=== PATIENT | male | born 1950 | race Caucasian/White ===

== ENCOUNTER 2016-09-01 08:25 | Observation (INO) | payer MEDICARE ==
[~2016-09-01] VITALS: Ht 193 cm; Wt 131.9 kg
[2016-09-01] VITALS (9 sets, daily range): BP systolic 126–154; BP diastolic 69–91; PULSE 93–103; RESP 16–23; O2SAT 92–97
--- NOTE | 2016-09-01 08:35 | ED.REPORT ---
HPI-Chest Pain 40 and Over Date of Service Sep 01, 2016 ED Provider: Ochoa Byrd MD Patient is a 65 year old male w/ a hx of DM II on insulin, hyperlipidemia, JANIE and HTN who presents to the ED with left chest pressure onset 0100. The pain lasts for 30-60 minutes then disappears for another hour. Confirms nausea. The pain does not radiate, no associated numbness and is not present on arrival at the ED. Pt was admitted into the ICU intubated for DKA with pancreatitis at [facility] July 242016. He was also admitted July 08, 08-06 for pneumonia vs pancreatitis causing DKA. Sugar is currently 76. He has no hx of heart disease. He does not have a gallbladder. Regular doctor is Dina Marcelo. Nursing Notes Stated Complaint: CHEST PAIN Chief Complaint: Chest Pain Nursing Notes Reviewed: Yes ([employer], [place] not recon) Allergies: Coded Allergies: Penicillins (Verified Allergy, Severe, Anaphylaxis, 09/01/16) Scheduled Atorvastatin Calcium (Atorvastatin Calcium) 10 Mg Tablet 10 MG PO DAILY Fenofibric Acid (Fenofibric Acid DR) 45 Mg Capsule 45 MG PO DAILY Hydrochlorothiazide (Hydrochlorothiazide) 50 Mg Tablet 50 MG PO DAILY Insulin Glargine (Lantus U100 Solostar Insulin Pen) 100 Unit/1 Ml Insuln.pen 60 UNIT SQ HS Insulin Lispro (HumaLOG U100 Insulin Pen) 100 Unit/1 Ml Insuln.pen 10 UNIT SQ TID Lactobacillus Combo No.11 (Probiotic) 1 Each Cap.sprink 2 EACH PO DAILY Lisinopril (Lisinopril) 5 Mg Tablet 5 MG PO DAILY Metformin ER (Metformin ER) 500 Mg Tablet 500 MG PO DAILY Multivitamin (Multivitamins) 1 Each Capsule 1 EACH PO DAILY Pantoprazole (Pantoprazole DR) 40 Mg Tablet.dr 40 MG PO DAILY Scheduled PRN Hydrocodone-Acetaminophen 5-325 mg (Hydrocodone-Acetaminophen 5-325 mg) 1 Each Tablet 1 TAB PO TID PRN PRN For Pain Prochlorperazine Maleate (Prochlorperazine) 10 Mg Tablet 10 MG PO prn PRN PRN For Nausea General Time Seen by MD: 08:28 Chief Complaint Chest pain Hx Obtained From: Patient, EMS Arrived By: Ambulance Sudden in Onset?: Yes Onset Occurred: 5 - 8 hours ago Symptom Duration: Since onset Location: : Substernal Quality: Pressure Radiation: : Does not radiate Severity: Current: No pain currently Severity: Maximum: Moderate Associated with: Reports: Nausea Pertinent Negative: Pt denies other symptoms Recent Healthcare: Recent doctor visit, Recent hospitalization Past Medical History Past Medical History Notes: Admitted in to the ICU intubated for DKA with pancreatitis at [facility] July 242016 (admitted July 082016 as well) Past Medical History History of acute pancreatitis Type II diabetes-DKA develop in the setting of pancreatitis Elevated triglycerides (515)/hyperlipidemia Hypertension Obstructive sleep apnea on CPAP History of esophageal dysmotility outpatient gastroenterology consult for endoscopy plan Past Surgical History Denies: Dialysis shunt, Tubal ligation Smoking History Never Smoker Social History Alcohol Use: Denies alcohol use Drug Use: Denies drug use Review of Systems Cardiovascular: Reports: Chest pain GI: Reports: Nausea Complete sys rev & neg: except as marked. Physical Exam Initial Vital Signs Vital Signs (First) Date Time Temp Pulse Resp B/P Pulse Ox O2 Delivery O2 Flow Rate FiO2 09/01/16 08:27 36.8 103 23 149/74 93 Room Air Initial VS: Reviewed, Vital signs abnormal (HR 103) Head / Eyes: Atraumatic, Normocephalic, PERRL ENT: Mucous membranes moist, Conjunctiva normal, No scleral icterus Neck: Supple Extremities: Vascular intact, Neuro intact, No swelling, No tenderness Skin: Warm, Dry, No cyanosis Neurologic: Alert, Oriented, Nonfocal Psychiatric: Mood/affect normal, Behavior normal, Normal thought content General/Constitutional: Awake, Alert, Cooperative Appearance / Presentation: Positive: Obese Respiratory / Chest: Atraumatic, Breath sounds NL, Breath sounds = bilat Heart Rate / Rhythm: Positive: Tachycardia Abdomen: Atraumatic, Soft, Non-tender Interpretation & Diagnostics Interpretation & Diagnostics: ANGIOGRAPHY CT IMPRESSION: 1. No pulmonary embolus. 2. Findings suggestive of acute pancreatitis; correlation with laboratory testing recommended. 3. Coronary artery disease. 4. Small pericardial effusion versus mild pericardial thickening. Dictated by: Kaylan Villegas M.D. on 09/01/2016 at 12:55 Approved by: Kalyan Villegas M.D. on 09/01/2016 at 12:58 Lab Results Interpretation Result Diagram: 09/01/16 0830 09/01/16 0830 Test 09/01/16 08:30 09/01/16 09:00 White Blood Count 9.5th/mm3 (3.8-10.1) Red Blood Count 4.55mil/mm3 (4.40-5.80) Hemoglobin 12.1g/dL (13.8-17.2) Hematocrit 37.1% (41.0-50.0) Mean Corpuscular Volume 81.5fL (81-100) Mean Corpuscular Hemoglobin 26.6pg (27.0-35.0) Mean Corpuscular Hemoglobin Concent 32.6% (32.0-37.0) Red Cell Distribution Width 15.8% (12.3-15.4) Platelet Count 296bil/L (150-400) Neutrophils (%) (Auto) 51.7% (40-74) Lymphocytes (%) (Auto) 32.9% (14-46) Monocytes (%) (Auto) 12.6% (4-12) Eosinophils (%) (Auto) 2.1% (0-5) Basophils (%) (Auto) 0.4% (0-3) D-Dimer 0.7mg/L (<0.50) Sodium Level 141mEq/L (134-144) Potassium Level 3.2mEq/L (3.5-5.2) Chloride Level 105mEq/L (97-108) Carbon Dioxide Level 19mmol/L (18-29) Blood Urea Nitrogen 9mg/dL (8-27) Creatinine 0.91mg/dL (0.76-1.27) Estimat Glomerular Filtration Rate 88mL/min (>59) Glucose Level 78mg/dL (60-99) Calcium Level 9.6mg/dL (8.5-10.1) Magnesium Level 1.7mg/dL (1.6-2.6) Total Bilirubin 0.6mg/dL (0.0-1.2) Aspartate Amino Transf (AST/SGOT) 22U/L (0-50) Alanine Aminotransferase (ALT/SGPT) 15U/L (0-44) Alkaline Phosphatase 64U/L (25-160) Total Protein 7.0g/dL (6.4-8.4) Albumin 3.8g/dL (3.4-5.0) Triglycerides Level 120mg/dL (0-149) Cholesterol Level 134mg/dL (100-199) LDL Cholesterol, Calculated 76.000mg/dL (0-99) VLDL Cholesterol 24.000mg/dL HDL Cholesterol 34mg/dL (>39) Cholesterol/HDL Ratio 3.94 (0.0-4.4) Lipase 13U/L (13-60) Hold Rodarte Top Tube Received (Received) Lab Results Interpretation: CBC normal and CMP normal except for mild hypokalemia Lipase normal Troponin #1 negative ECG Interpretation Time: 11:30 Interpreted by: ED physician Normal ECG Interpretation: No acute ischemic changes Rhythm / Conduction: Tachycardia (103) X-Ray Chest Interpretation Chest Xray Interpretation: IMPRESSION: No acute cardiopulmonary disease. Dictated by: Frankie Gasca RRAmy Interpreted: Rosario Ordaz MD on 09/01/2016 at 9:25 Transcribed by: TERA on 09/01/2016 at 9:25 View: Portable Interpretation / Wet Read by: Interpret - Radiologist Re-Eval/Medical Decision Med Decision/Clinical Course This is a 65-year-old male who presents from the cardiovascular laboratory scheduled to undergo a stress test today complaining of some off and on chest discomfort since last night. This is a patient without prior history of heart disease, but he does have multiple risk factors including obesity, diabetes, hypertension, hyperlipidemia, elevated triglycerides and has been recently hospitalized for severe pancreatitis barely requiring intubation in June, and a secondary hospitalization both at [facility]. He reports he is generally been doing okay, denies fevers chills sweats nausea vomiting or pain with eating. He is having a waxing and waning chest discomfort and pressure. When I go to examine him, he is not currently having symptoms-imports it was generally mildly to 2 out of 10. It was not clearly exertional. He has risk factors or recent hospitalizations 2, but no leg swelling or other markers to indicate venous thromboembolism, with the exception that he has a low -grade tachycardia at around 103 He had serial EKGs, no acute ischemic changes are appreciated. Blood work was normal including lipase and troponin. A d-dimer was elevated, so at this point a CT Perla was obtained that was negative for PE. CT suggests are still component of pancreatitis, but it patient's symptoms are not typical of pancreatitis at this time and I suspect this may be residual inflammatory changes still visible from his recent admission for pancreatitis, which at that time was attributed to elevated triglycerides. Patient does not drink alcohol. The patient did receive aspirin, Nitropaste, nitroglycerin-and is improved. His heart score is 4, and thus admission is reasonable. He is already been determined to merit a stress test, is now having these waxing waning symptoms as well making it difficult to time enzymes, and has multiple risk factors. With the negative CT, PE has been excluded Case is discussed with the admitting hospitalist. Source of Hx: Old records Consultation : Referral / Consult Name: Paradise Ayala DO Consulted With: Hospitalist Call Returned at: 13:06 Senior Sourcing Manager: Agrees with eval, Agrees with plan Note: Case discussed. Differential Diagnosis: Positive: Chest pain, acute, Negative: Asthma exacerbation, Congestive heart failure, Dysrhythmia, Esophageal rupture, Gun shot wound chest, Pneumomediastinum, Pneumonia, Pneumothorax, Pulmonary edema, Pulmonary embolism, Rib fracture, Stab wound chest Counseled Regarding: Diagnosis, Lab results, Need for admission Discharge & Departure Primary Impression: Chest pain Chest pain type: unspecified Qualified Code: R07.9 - Chest pain, unspecified Disposition: Home Discharge Condition All VS Reviewed: Yes Condition: Stable Referrals: Ricki Chau MD (PCP) Scribe Attestation Portion of this note were transcribed by Kaitlynn Goodson. I, Dr. Byrd, personally performed the history, physical exam, and medical decision-making: I reviewed and confirmed the accuracy for the information in the transcribed note. Signed by: ravi Higuera, 09/01/16 1500 copies to: Ricki Chau MD, Matthew F MD Sep 01, 2016 08:35 Kaitlynn Goodson Sep 01, 2016 08:49
[2016-09-01 08:47] LABS: BASOPHILS % (AUTO) 0.4 % (0-3); EOSINOPHILS % (AUTO) 2.1 % (0-5); MONOCYTES % (AUTO) 12.6 % (4-12); Mean Corpuscular Hemoglobin 26.6 pg (27.0-35.0); Mean Corpuscular Volume 81.5 fL (81-100); NEUTROPHILS % (AUTO) 51.7 % (40-74); Platelet Count 296 bil/L (150-400)
[2016-09-01 09:13] LABS: TROPONIN T 0.01 ug/L (0.0-0.011)
[2016-09-01 09:24] LABS: Magnesium 1.7 mg/dL (1.6-2.6)
[2016-09-01] MEDS ORDERED: Nitroglycerin 2% 1 Gm Ointment TOPICAL SCH (09:25)
--- NOTE | 2016-09-01 09:25 | DRSVH ---
PROCEDURE: X-RAY CHEST ONE VIEW, PORTABLE ([id number]) INDICATIONS: CHEST PAIN TECHNIQUE: One view of the chest was acquired. COMPARISON: None. FINDINGS: Surgical changes and devices: None. Lungs and pleura: No pleural effusions or pneumothorax. Lungs are clear. Mediastinum: Mediastinal contours appear normal. Heart size is normal. Bones and chest wall: No suspicious bony lesions. Overlying soft tissues appear unremarkable. IMPRESSION: No acute cardiopulmonary disease. Dictated by: Frankie Gasca [facility] Interpreted: Rosario Ordaz MD on 09/01/2016 at 9:25 Transcribed by: TERA on 09/01/2016 at 9:25 Approved by: Rosario Ordaz MD, PhD on 09/01/2016 at 17:00
[2016-09-01] MEDS ORDERED: PANT40TA3 PO (11:57)
[2016-09-01] MEDS ORDERED: METF500T7 PO (11:57)
[2016-09-01] MEDS ORDERED: INSU100I13 SQ (11:57)
[2016-09-01] MEDS ORDERED: INSU100I18 SQ (11:57)
[2016-09-01] MEDS ORDERED: HYDR-4003 PO (11:57)
[2016-09-01] MEDS ORDERED: ATOR10TA66 PO (11:57)
[2016-09-01] MEDS ORDERED: LISI-571 PO (11:57)
[2016-09-01] MEDS ORDERED: FENO45CA2 PO (11:57)
[2016-09-01] MEDS ORDERED: HYDR50TA3 PO (12:04)
[2016-09-01] MEDS ORDERED: PROC10TA PO (12:04)
[2016-09-01] MEDS ORDERED: MULT1CAP33 PO (12:05)
[2016-09-01] MEDS ORDERED: LACT1CAP73 PO (12:05)
--- NOTE | 2016-09-01 13:00 | DRSVH ---
PROCEDURE: CT ANGIO CHEST PULMONARY EMBOLISM ([id number]) INDICATIONS: CP Dimer TECHNIQUE: After the administration of intravenous contrast, 2 mm thick sections acquired from the pulmonary api declan to the posterior costophrenic angles. 3-dimensional maximum intensity projection (MIP) coronal a nd sagittal reformats were then acquired through the thorax. For radiation dose reduction, the follo wing was used: automated exposure control, adjustment of mA and/or kV according to patient size. COMPARISON: None. FINDINGS: Image quality: Excellent. Pulmonary arteries: Pulmonary arteries are normal in size, and demonstrate no intraluminal filling d efects to suggest central pulmonary embolism. Lungs and pleura: Lungs are clear. No pleural effusions or pneumothorax. Central and peripheral ai rways are patent. Mediastinum: Heart size is normal. There is a trace pericardial effusion versus mild pericardial thi ckening. There is calcification of the coronary vasculature. No mediastinal or hilar adenopathy. Tho racic aorta is normal in caliber and enhancement. Esophagus is normal in caliber, without hiatal her karla. Bones and chest wall: No suspicious bony lesions. Ribs and thoracic spine appear intact throughout. Thyroid gland is within normal limits. No axillary or supraclavicular adenopathy. Abdomen: Visualized portions of the upper abdomen demonstrate mild fat stranding adjacent to the welch creatic tail, and within the left anterior pararenal space. IMPRESSION: 1. No pulmonary embolus. 2. Findings suggestive of acute pancreatitis; correlation with laboratory testing recommended. 3. Coronary artery disease. 4. Small pericardial effusion versus mild pericardial thickening. Dictated by: Kaylan Villegas M.D. on 09/01/2016 at 12:55 Approved by: Kaylan Villegas M.D. on 09/01/2016 at 12:58
[2016-09-01] MEDS ORDERED: Alum-Mag Hydrox-Simeth 30 mL Suspension PO PRN (13:10)
[2016-09-01] MEDS ORDERED: Ondansetron 2 mg/mL 2 mL Inj IVPUSH PRN (13:10)
[2016-09-01] MEDS ORDERED: Polyethylene Glycol (PEG) 17 Gm Powder PO PRN (13:10)
[2016-09-01] MEDS: Pantoprazole 40 mg ER24 Tablet PO SCH (13:32)
--- NOTE | 2016-09-01 14:00 | NUR ---
[facility] Admit Patient arrived at [facility] per his electronic scooter, A/O x4. Able to transfer from bed to his assistive devise for mobility. IV site patent and in place. Denies any chest pain at this time. Patient oriented to room and unit. Made comfortable, VSS recorded. Will continue to monitor. Addendum: 09/01/16 at 1924 by BRYANT LIN RN Patient not tolerating potassium IV, he stated "it hurts". IV infusion stopped after a few minutes of administration. ARISTIDES LOPEZ aware.
[2016-09-01] MEDS ORDERED: KCl 40 mEq/500 mL D5W (Peripheral Line) IV ONE ×2 (15:10)
[2016-09-01] MEDS: Insulin LISPRO 300 Unit/3 mL Inj SUBQ SCH ×2 (15:20→19:52)
--- NOTE | 2016-09-01 17:31 | PCM.HPMED ---
Subjective Date of Service Sep 01, 2016 Primary Provider: Admitting Physician: Paradise Ayala DO Primary Care Physician: Ricki Chau MD Attending Physician: Paradise Ayala DO Chief Complaint: Chest pain Allergies Coded Allergies: Penicillins (Verified Allergy, Severe, Anaphylaxis, 09/01/16) PMH Social History Hx Alcohol Use: No Hx Substance Use: No Smoking Status: Never Smoker Exam Vital Signs Vital Sign - Last Date Time Temp Pulse Resp B/P Pulse Ox O2 Delivery O2 Flow Rate FiO2 09/01/16 11:00 103 18 154/91 94 Room Air 09/01/16 08:27 36.8 Exam Physical Exam: GEN: Patient was awake, alert, responding appropriately to questions HEENT: PERRLA, EOMI, Neck soft supple, trachea midline, nomocephalic/atraumatic CV: +S1/S2, RRR, no murmur auscultated Respiratory: CTAB, no wheezes, rales, rhonchi GI: +bowel sounds x4, soft, compressible, non TTP EXT: no c/c/e Neuro: CN II-XII grossly intact Psych: mood and affect were appropriate Lab and Diagnostics Labs Laboratory Tests Test 09/01/16 08:30 09/01/16 09:00 09/01/16 13:50 White Blood Count 9.5th/mm3 (3.8-10.1) Red Blood Count 4.55mil/mm3 (4.40-5.80) Hemoglobin 12.1g/dL (13.8-17.2) Hematocrit 37.1% (41.0-50.0) Mean Corpuscular Volume 81.5fL (81-100) Mean Corpuscular Hemoglobin 26.6pg (27.0-35.0) Mean Corpuscular Hemoglobin Concent 32.6% (32.0-37.0) Red Cell Distribution Width 15.8% (12.3-15.4) Platelet Count 296bil/L (150-400) Neutrophils (%) (Auto) 51.7% (40-74) Lymphocytes (%) (Auto) 32.9% (14-46) Monocytes (%) (Auto) 12.6% (4-12) Eosinophils (%) (Auto) 2.1% (0-5) Basophils (%) (Auto) 0.4% (0-3) D-Dimer 0.7mg/L (<0.50) Sodium Level 141mEq/L (134-144) Potassium Level 3.2mEq/L (3.5-5.2) Chloride Level 105mEq/L (97-108) Carbon Dioxide Level 19mmol/L (18-29) Blood Urea Nitrogen 9mg/dL (8-27) Creatinine 0.91mg/dL (0.76-1.27) Estimat Glomerular Filtration Rate 88mL/min (>59) Glucose Level 78mg/dL (60-99) Calcium Level 9.6mg/dL (8.5-10.1) Magnesium Level 1.7mg/dL (1.6-2.6) Total Bilirubin 0.6mg/dL (0.0-1.2) Aspartate Amino Transf (AST/SGOT) 22U/L (0-50) Alanine Aminotransferase (ALT/SGPT) 15U/L (0-44) Alkaline Phosphatase 64U/L (25-160) Troponin T 0.010ug/L (0.0-0.011) < 0.010ug/L (0.0-0.011) Total Protein 7.0g/dL (6.4-8.4) Albumin 3.8g/dL (3.4-5.0) Triglycerides Level 120mg/dL (0-149) Cholesterol Level 134mg/dL (100-199) LDL Cholesterol, Calculated 76.000mg/dL (0-99) VLDL Cholesterol 24.000mg/dL HDL Cholesterol 34mg/dL (>39) Cholesterol/HDL Ratio 3.94 (0.0-4.4) Lipase 13U/L (13-60) Hold Rodarte Top Tube Received (Received) Result Diagram: 09/01/1682909/01/16829 Assessment & Plan HPI: Patient is a 65-year-old gentleman who presents with a complaint of chest pain. The patient states that over the last few weeks he has been having intermittent chest pain. In June the patient was admitted to [place] and intubated for 5 days secondary to pancreatitis and ketoacidosis. The patient had been following with his primary care and cardiology as the patient since then has been having intermittent chest pain. The patient was in [place] ER 2 weeks ago and had a cardiac workup which was negative. Patient also had an echo that was done on 08/23/2016 showing an EF of 50-60%. The patient was scheduled today to have a cardiac stress test however the patient was having some chest pain and it was recommended that the patient come to the ER and have a cardiac workup prior to having a stress test. Patient states that he currently has no chest pain and denies any nausea, vomiting, diarrhea, shortness of breath. Patient states that he did have chest pain when he came to the ER however it seemed to relieve with sublingual nitroglycerin and Nitropaste. Echo 08/23/2016: EF of 50-65%, left ventricle normal size, right ventricle normal size with normal systolic function, right ventricle systolic pressure 36 mmHg, right atrial pressure 3 mmHg, left atria normal size, right atrium normal size, no significant volume disease, aortic root normal size. Home medications: All medications have been reviewed please see med rec Allergies: Drug: Penicillin PMHx: Obesity Diabetes type II Hyperlipidemia Hypertension Hypertriglyceridemia Pancreatitis SHx: Cholecystectomy 5 years ago FHx: Maternal grandfather age 63 from a heart attack Mother at age 74 from breast cancer SocHx: Occupation: Retired [employer] Tobacco history: Patient denies any current smoking patient states that he quit smoking in his 20s Alcohol use: Patient denies Drug use: Patient denies ROS: A complete revew of systems was performed or attempted to be performed. Please see HPI for perninent positives, all other systems are negatives. Physical Exam: GEN: Patient was awake, alert, responding appropriately to questions HEENT: PERRLA, EOMI, Neck soft supple, trachea midline, nomocephalic/atraumatic CV: +S1/S2, RRR, no murmurs auscultated Respiratory: CTAB, no wheezes, rales, rhonchi GI: +bowel sounds x4, soft, compressible, non TTP EXT: no c/c/e Neuro: CN II-XII grossly intact Psych: mood and affect were appropriate Assessment and Plan Chest pain rule out ACS -Serial troponins first troponin was negative -Echo currently not necessary as most recent echo was done on 08/23/2016 -Nothing by mouth after midnight -Cardiac stress test in the morning -Sublingual nitroglycerin for pain -Continue aspirin Hypertension -Current blood pressure 143/72 -Lisinopril increased from 5 mg daily to 10 mg daily (hold tomorrow morning for stress test) -Continue hydrochlorothiazide 50 mg by mouth daily (hold for stress test tomorrow) Hyperlipidemia -Increase atorvastatin from 10 mg daily to 40 mg daily -Follow up lipids in the morning -TSH in the morning Diabetes type II -Hemoglobin A1c in the morning -Continue metformin 500 mg twice a day -Lantus 60 units daily at bedtime Hypertriglyceridemia -Continue TriCor daily Obesity -BMI 33.5 Diet -Cardiac and diabetic DVT prophylaxis: Heparin Code Status: DNI yes to CPR Disposition: Patient will most likely stay less than 2 midnight Time spent Greater than 35 minutes Paradise Ayala DO Sep 01, 2016 17:31
[2016-09-01] MEDS: Heparin 5,000 Unit/mL Inj SUBQ SCH (18:37)
[2016-09-01] MEDS ORDERED: Potassium Chloride 20 mEq SR Tablet PO ONE (19:30)
[2016-09-01] MEDS ORDERED: Insulin GLARgine 100 Unit/mL Syringe SUBQ SCH (21:00)
[2016-09-02] MEDS: Heparin 5,000 Unit/mL Inj SUBQ SCH ×2 (00:08→11:02)
[2016-09-02] MEDS: 0.9% Sodium Chloride 1,000 ML IV SCH ×2 (00:20→10:10)
[2016-09-02 00:30] LABS: APPEARANCE,URINE CLEAR (CLEAR,HAZY); COLOR,URINE DARK YELLOW (YELLOW); OCCULT BLOOD,URINE NEGATIVE (NEGATIVE)
[2016-09-02 00:42] VITALS: BP 131/76; PULSE 81; RESP 18; O2SAT 94
--- NOTE | 2016-09-02 01:00 | NUR ---
CHEST PRESSURE Pt began to feel chest pressure, dizziness, and feeling flushed, said "like I have low blood sugar." Blood sugar was 96, VSS BP 120/74, HR 95, O2 94, RR 18. Paged Dr. Bynum, ordered NS 100/ml r/t NPO status for tomorrow's stress test, placed pt on telemetry, and requested nitro tablet to be given. Gave 4 oz of orange juice. Gave 1 nitro tablet with relief of chest pressure, BP 120/71. Pt then stated "I just don't feel good. Starting to have a hard time breathing." VSS, O2 94. Pt does have h/o JANIE with cpap use, but unavailable at hospital. Pt on cpox with 2 L NC. Spoke with CCU charge for advice who recommended STAT MG and K per tele protocol orders. Frequent rounding. Addendum: 09/02/16 at 021 by SANDRA AHMADI RN K 3.6 and MG 1.6. Paged Dr. Bynum with results. Awaiting orders. Addendum: 09/02/16 at 0214 by SANDRA AHMADI RN 2 gm IV magnesium sulfate to be given. Addendum: 09/02/16 at 0239 by SANDRA AHMADI RN CORRECTION No cpox placed as there are no cpox available. Frequent vital sign checks in place.
[2016-09-02 01:56] LABS: Magnesium 1.6 mg/dL (1.6-2.6)
[2016-09-02] MEDS ORDERED: DEXTROSE IV ONE (02:20)
[2016-09-02] MEDS ORDERED: MAGNESIUM SULFATE 2 GM/50 ML IV ONE (02:20)
--- NOTE | 2016-09-02 02:30 | NUR ---
FRUSTRATION Pt frustrated with current plan of care. Pt worried that, like on 09/01/16, if pt has chest pain he will not be able to have stress test. RN encouraged pt to express frustration. Pt stated, "I'm thinking I want to go home and take my chances with having a big heart attack. I just got out of the hospital and I thought I'd just be getting a stress test and here I am staying overnight. Why is a stress test the only thing they can do to figure it out?" Pt expresses frustration with being hooked up to oxygen tubing, IV tubing, and tele monitor. RN explained the importance in these with the plan of care. RN tried to explain need for monitoring and IV fluids. Will continue to monitor.
[2016-09-02 04:24] VITALS: BP 135/66; PULSE 78; RESP 16; O2SAT 93
[2016-09-02 05:11] VITALS: PULSE 90
[2016-09-02 07:14] LABS: Mean Corpuscular Hemoglobin 26.4 pg (27.0-35.0); Mean Corpuscular Volume 82.7 fL (81-100)
[2016-09-02] MEDS: Insulin LISPRO 300 Unit/3 mL Inj SUBQ SCH (07:41)
[2016-09-02 07:43] VITALS: PULSE 83
--- NOTE | 2016-09-02 07:54 | NUR ---
Off floor Pt off floor for stress test. Will receive AM medications when he returns.
[2016-09-02] MEDS ORDERED: metFORMIN ER 500 mg ER24 Tablet PO SCH (08:30)
[2016-09-02] MEDS ORDERED: [UNRECOGNIZED DRUG - OTHER] PO SCH (08:30)
--- NOTE | 2016-09-02 08:40 | NUR ---
Case Management: Attempted to give CLE[place] and Medicare Part D info at 0835 to pt. Pt not in room; per community leader, pt is off unit undergoing stress test. Will try again later. MURTAZA Holloway RN
[2016-09-02 10:58] VITALS: BP 145/83; PULSE 101; RESP 20; O2SAT 95
[2016-09-02] MEDS: Pantoprazole 40 mg ER24 Tablet PO SCH (11:01)
--- NOTE | 2016-09-02 11:03 | NUR ---
Case Management: CLEMENTS and Medicare Part D info given and explained to patient at bedside at 10:47 am. No questions at this time. Signed form placed in hard chart, copy given to patient. MURTAZA Holloway RN
--- NOTE | 2016-09-02 13:54 | PCM.DIMED ---
Discharge Instructions Date of Service Sep 02, 2016 Dates of Hospitalization Sep 01, 2016 at 13:06 Discharge Diagnosis Discharge Diagnosis Chest pain Medication Instructions Please follow up with your PCP in one week your thyroid levels are abnormal and this needs to be followed up on as this may be the cause of some of your chest pain Please keep your appointment with your film waxer on 09/08/16 Test Results TSH 4.5 Diet Heart Healthy, Diabetic Activity No restrictions (gradually return to your normal daily activities) Call your provider Fever or Chills, Shortness of breath, Bleeding, Chest pain, Vomitting, Excessive diarrhea, Weakness (unilateral) Patient Instructions Please follow up with your PCP in regards to your abnormal thyroid levels and follow up with your film waxer Follow-up Provider: Shirley Marcelo Follow-up with PCP in: 1 week (If an appointment has not already been made please call to make an appointment) Follow-up in: 1 week (Please keep your appointment with cardiology on 09/08/16) Paradise Ayala DO Sep 02, 2016 13:54
[2016-09-02] MEDS ORDERED: LEVO25TA2 PO (13:59)
[2016-09-02] MEDS ORDERED: METO25TA99 PO (13:59)
[2016-09-02] MEDS ORDERED: LISI-571 PO (13:59)
[2016-09-02] MEDS ORDERED: NITR0.4T SL (13:59)
[2016-09-02] MEDS ORDERED: ASPI81TA3 PO (13:59)
--- NOTE | 2016-09-02 14:18 | PCM.DC.MED ---
Discharge Summary Date of Service Sep 02, 2016 Dates of Hospitalization Date of Hospital Admission Sep 01, 2016 at 13:06 Date of Discharge: Sep 02, 2016 Providers: Admitting Physician: Paradise Ayala DO Primary Care Physician: Ricki Chau MD Attending Physician: Paradise Ayala DO Diagnosis at Time of Discharge Diagnosis at Time of Discharge Chest pain Brief History Patient is a 65-year-old gentleman who presents with a complaint of chest pain. The patient states that over the last few weeks he has been having intermittent chest pain. In June the patient was admitted to [place] and intubated for 5 days secondary to pancreatitis and ketoacidosis. The patient had been following with his primary care and cardiology as the patient since then has been having intermittent chest pain. The patient was in [place] ER 2 weeks ago and had a cardiac workup which was negative. Patient also had an echo that was done on 08/23/2016 showing an EF of 50-60%. The patient was scheduled today to have a cardiac stress test however the patient was having some chest pain and it was recommended that the patient come to the ER and have a cardiac workup prior to having a stress test. Patient states that he currently has no chest pain and denies any nausea, vomiting, diarrhea, shortness of breath. Patient states that he did have chest pain when he came to the ER however it seemed to relieve with sublingual nitroglycerin and Nitropaste. Echo 08/23/2016: EF of 50-65%, left ventricle normal size, right ventricle normal size with normal systolic function, right ventricle systolic pressure 36 mmHg, right atrial pressure 3 mmHg, left atria normal size, right atrium normal size, no significant volume disease, aortic root normal size. Hospital Course The patient was admitted for chest pain workup. The patient did not have an echo performed while in because he had recently had an echo that was performed on 08/23/2016 which showed that the patient had a normal EF. The patient had negative troponins 3 and after talking directly with the psychology fellow who stated to the patient's stress test was normal. The patient did have some hyper-tension and his lisinopril was increased from 5 mg to 10 mg daily and the patient was placed on aspirin 81 mg daily and metoprolol 25 mg daily. The patient's lipid panel was normal and was encouraged to continue using his 10 mg of atorvastatin daily at bedtime. The patient was found to have an elevated TSH of 4.5 and a free T4 0.92. The patient's chest pain may be secondary to hypothyroid symptoms. The patient was placed on 25 g of Synthroid daily and was encouraged to follow-up with his PCP within one week. The patient was encouraged to follow-up with his PCP in one week and to also keep his appointment for his psychology fellow that was scheduled for 09/08/2016. Patient is being discharged home in stable condition. Hospital plan Hypothyroidism -Start Synthroid 25 g daily -Follow up with PCP Chest pain rule out ACS -Serial troponins first troponin was negative -Echo currently not necessary as most recent echo was done on 08/23/2016 -Nothing by mouth after midnight -Cardiac stress test -normal -Sublingual nitroglycerin for pain -Continue aspirin Hypertension -Current blood pressure 143/72 -Lisinopril increased from 5 mg daily to 10 mg daily (hold tomorrow morning for stress test) -Continue hydrochlorothiazide 50 mg by mouth daily (hold for stress test tomorrow) Hyperlipidemia -Increase atorvastatin from 10 mg daily to 40 mg daily -Follow up lipids in the morning -TSH in the morning Diabetes type II -Hemoglobin A1c in the morning -Continue metformin 500 mg twice a day -Lantus 60 units daily at bedtime Hypertriglyceridemia -Continue TriCor daily Obesity -BMI 33.5 Diet -Cardiac and diabetic DVT prophylaxis: Heparin Code Status: DNI yes to CPR Disposition: Patient will most likely stay less than 2 midnight Exam Vital Signs (Last) Date Time Temp Pulse Resp B/P Pulse Ox O2 Delivery O2 Flow Rate FiO2 09/02/16 10:58 101 20 145/83 95 Room Air 09/02/16 04:24 36.5 Exam Physical Exam: GEN: Patient was awake, alert, responding appropriately to questions HEENT: PERRLA, EOMI, Neck soft supple, trachea midline, nomocephalic/atraumatic CV: +S1/S2, RRR, no murmurs auscultated Respiratory: CTAB, no wheezes, rales, rhonchi GI: +bowel sounds x4, soft, compressible, non TTP EXT: no c/c/e Neuro: CN II-XII grossly intact Psych: mood and affect were appropriate Test 09/01/16 08:30 09/01/16 09:00 09/01/16 19:28 09/02/16 00:05 Neutrophils (%) (Auto) 51.7% (40-74) Lymphocytes (%) (Auto) 32.9% (14-46) Monocytes (%) (Auto) 12.6% (4-12) Eosinophils (%) (Auto) 2.1% (0-5) Basophils (%) (Auto) 0.4% (0-3) D-Dimer 0.7mg/L (<0.50) Hemoglobin A1c 7.0% (4.8-5.6) Cholesterol Level 134mg/dL (100-199) LDL Cholesterol, Calculated 76.000mg/dL (0-99) VLDL Cholesterol 24.000mg/dL HDL Cholesterol 34mg/dL (>39) Cholesterol/HDL Ratio 3.94 (0.0-4.4) Lipase 13U/L (13-60) Hold [place] Top Tube Received (Received) Troponin T < 0.010ug/L (0.0-0.011) Hold Urine Received (Received) Test 09/02/16 00:13 09/02/16 01:15 09/02/16 06:36 Urine Color Dark yellow (YELLOW) Urine Appearance Clear (CLEAR,HAZY) Urine pH 6.0 (5.0-8.0) Urine Specific [place] 1.015 (1.003-1.035) Urine Protein Negativemg/dL (NEG,TRACE) Urine Glucose (UA) Negativemg/dL (NEGATIVE) Urine Ketones Negativemg/dL (NEGATIVE) Urine Occult Blood Negative (NEGATIVE) Urine Nitrite Negative (NEGATIVE) Urine Bilirubin Negative (NEGATIVE) Urine Urobilinogen 1.0mg/dL (NORMAL) Urine Leukocyte Esterase Negative (NEGATIVE) Urine RBC 0-2/hpf (0-2) Urine WBC 0-5/hpf (0-5) Urine Epithelial Cells Few/hpf (NONE-MOD) Urine Crystals None seen (NONE SEEN) Urine Bacteria Few/hpf (NONE-FEW) Urine Hyaline Casts None/lpf (NONE) Urine Granular Casts None seen (NONE SEEN) Urine Waxy Casts None seen (NONE SEEN) Urine Red Blood Cell Casts None seen (NONE SEEN) Urine White Blood Cell Casts None seen (NONE SEEN) Urine Mucus None seen (None Seen) Urine Trichomonas None seen (NONE SEEN) Urine Yeast None (NONE SEEN) Urinalysis Comment None Urine Culture Reflexed Not indicated Magnesium Level 1.6mg/dL (1.6-2.6) White Blood Count 7.4th/mm3 (3.8-10.1) Red Blood Count 3.87mil/mm3 (4.40-5.80) Hemoglobin 10.2g/dL (13.8-17.2) Hematocrit 32.0% (41.0-50.0) Mean Corpuscular Volume 82.7fL (81-100) Mean Corpuscular Hemoglobin 26.4pg (27.0-35.0) Mean Corpuscular Hemoglobin Concent 31.9% (32.0-37.0) Red Cell Distribution Width 15.5% (12.3-15.4) Platelet Count 232bil/L (150-400) Sodium Level 141mEq/L (134-144) Potassium Level 3.7mEq/L (3.5-5.2) Chloride Level 107mEq/L (97-108) Carbon Dioxide Level 20mmol/L (18-29) Blood Urea Nitrogen 10mg/dL (8-27) Creatinine 0.94mg/dL (0.76-1.27) Estimat Glomerular Filtration Rate 85mL/min (>59) Glucose Level 70mg/dL (60-99) Calcium Level 9.2mg/dL (8.5-10.1) Total Bilirubin 0.5mg/dL (0.0-1.2) Aspartate Amino Transf (AST/SGOT) 16U/L (0-50) Alanine Aminotransferase (ALT/SGPT) 12U/L (0-44) Alkaline Phosphatase 56U/L (25-160) Total Protein 5.5g/dL (6.4-8.4) Albumin 3.2g/dL (3.4-5.0) Triglycerides Level 120mg/dL (0-149) Thyroid Stimulating Hormone (TSH) 4.530uIU/mL (0.450-4.500) Free Thyroxine 0.92ng/dL (0.82-1.77) Discharge Medications Discharge Medications Aspirin Chew (Aspirin Chew) 81 Mg Chew 81 MG PO DAILY Prescribed by: PARADISE AYALA DO Atorvastatin Calcium (Atorvastatin Calcium) 10 Mg Tablet 10 MG PO DAILY ( Reported) Fenofibric Acid DR (Fenofibric Acid DR) 45 Mg Capsule 45 MG PO DAILY (Reported) Hydrochlorothiazide (Hydrochlorothiazide) 50 Mg Tablet 50 MG PO DAILY (Reported ) Insulin Glargine (Lantus U100 Solostar Insulin Pen) 100 Unit/1 Ml Insuln.pen 60 UNIT SQ HS (Reported) Insulin Lispro (HumaLOG U100 Insulin Pen) 100 Unit/1 Ml Insuln.pen 10 UNIT SQ TID (Reported) Lactobacillus Combo No.11 (Probiotic) 1 Each Cap.sprink 2 EACH PO DAILY ( Reported) Levothyroxine (Synthroid) 25 Mcg Tablet 25 MCG PO DAILY Prescribed by: PRAADISE AYALA DO Lisinopril (Lisinopril) 5 Mg Tablet 10 MG PO DAILY Prescribed by: PARADISE AYALA DO Metformin ER (Metformin ER) 500 Mg Tablet 500 MG PO DAILY (Reported) Metoprolol Succinate ER (Metoprolol Succinate ER) 25 Mg Tab.er.24h 25 MG PO DAILY Prescribed by: PARADISE AYALA DO Multivitamin (Multivitamins) 1 Each Capsule 1 EACH PO DAILY (Reported) Pantoprazole (Pantoprazole ) 40 Mg Tablet.dr 40 MG PO DAILY (Reported) As needed Hydrocodone-Acetaminophen 5-325 mg (Hydrocodone-Acetaminophen 5-325 mg) 1 Each Tablet 1 TAB PO TID PRN PRN For Pain (Reported) Nitroglycerin SL (Nitrostat) 0.4 Mg Tab.subl 0.4 MG SL Q5MIN PRN PRN For Chest Pain Prescribed by: PARADISE AYALA DO Prochlorperazine Maleate (Prochlorperazine) 10 Mg Tablet 10 MG PO prn PRN PRN For Nausea (Reported) Additional med instructions Please follow up with your PCP in one week your thyroid levels are abnormal and this needs to be followed up on as this may be the cause of some of your chest pain Please keep your appointment with your psychology fellow on 09/08/16 Followup Plan Disposition: Home in stable condition Discharge Diet: Heart Healthy, Diabetic Discharge Activity: No restrictions (gradually return to your normal daily activities) Patient Instructions Please follow up with your PCP in regards to your abnormal thyroid levels and follow up with your psychology fellow Follow-up Provider: Shirley Marcelo Follow-up with PCP in: 1 week (If an appointment has not already been made please call to make an appointment) Follow-up in: 1 week (Please keep your appointment with cardiology on 09/08/16) Time spent Greater than 35 minutes copies to: Shirley Marcelo Precious L DO Sep 02, 2016 14:18
[2016-09-02 14:20] VITALS: BP 129/79; PULSE 91
--- NOTE | 2016-09-02 14:35 | NUR ---
Discharge Pt discharged from unit, accompanied by his . Pt provided with information on diagnoses, medications, follow up (pt has appointments made with optoelectronics engineer and PCP), and signs to watch for. Pt and verbalize understanding. Pt's belongings taken with him.
--- NOTE | 2016-09-02 14:51 | NUR ---
Social Work: Initial Assessment Data & Assessment: See Initial Assessment. EMR Reviewed. Patient is a 65 year old male that admitted on 09/01/16 due to Chest Pain per [facility]& [facility]. [employer] Operator met with patient at bedside to complete initial assessment, Social Work role explained and discharge planning discussed. Advanced directives were discussed and patient stated that he did not have Advance Directives/DPOA and declined information from the [employer] Operator. Patient's NOK is his , Violet Gutierrez- [phone]. Patient confirmed that his PCP is Dr. Ricki Chau. Patient's insurance is [facility] Medicare Complete HMO. Patient does not have any LTC benefits. Patient stated that he does have VA benefits. Patient's re-admit score is high at 3. Patient reports that he is independent at baseline and uses his walker in the home and his scooter for long distances. Patient reports no HH history and no SNF history. Patient lives at home with his in a one story home with two steps to enter. SW does not anticipate that patient will have any discharge needs. SW provided phone number and plan on white board in room. SW will continue to follow. Plan: Pt to likely discharge home no needs. Patient will discharge home via POV. SW will continue to follow. Katina Smith LMSW, [place] Addendum: 09/02/16 at 1459 by KATINA SMITH Amended: Links added.
--- NOTE | 2016-09-02 15:50 | DRSVH ---
PROCEDURE: THE PATIENT WAS GIVEN A STANDARD LEXISCAN INJECTION. BASELINE EKG SHOWS NORMAL SINUS RHY THM WITH LEFTWARD AXIS, NO DIAGNOSTIC ST OR T-WAVE ABNORMALITIES. THE PATIENT RECEIVED A STANDARD LE XISCAN DOSE WITH A NORMAL HEMODYNAMIC AND PHYSICAL RESPONSE TO THE LEXISCAN. HE RECEIVED 31.8 MILLIC URIES OF TECHNETIUM-99 FOLLOWING LEXISCAN STRESS. EARLIER IN THE MORNING HE HAD A RESTING STUDY DONE WITH 11 mEq OF TECHNETIUM-99 TETROFOSMIN. INDICATIONS: THIS IS A 65-YEAR-OLD GENTLEMAN WITH MULTIPLE CARDIAC RISK FACTORS PRESENTING WITH SYMP TOMS OF CHEST DISCOMFORT. NUCLEAR CARDIAC STRESS STUDY IS PERFORMED TO EXCLUDE SIGNIFICANT UNDERLYIN G ISCHEMIC HEART DISEASE. COMPARISON: None. FINDINGS: Raw data: Raw data images show overall good image quality. No significant source of artifact or int erference is seen. Quantitative gated SPECT imaging: Gated images show a normal-sized ventricle with an end-diastolic v olume estimated at 99 cc. Overall ejection fraction estimated at 67%. No regional wall motion abnor malities or myocardial thickening abnormalities are seen. Quantitative perfusion SPECT imaging: Myocardial perfusion imaging demonstrates a normal distributio n of radioisotope throughout the myocardium. No perfusion abnormalities are identified that suggest ischemia or scar. IMPRESSION: 1. Normal nuclear cardiac stress study. This suggests a low likelihood for the presence of significa nt underlying obstructive coronary disease. Dictated by: James Johnson M.D. on 09/02/2016 at 12:05 Transcribed by: SARAN on 09/02/2016 at 18:50 Approved by: James Johnson M.D. on 10/26/2016 at 16:48
[2016-09-02] MEDS ORDERED: Sodium Chloride LOK Flush 10 mL Syringe IVFLUSH SCH (16:30)
[2016-09-02] MEDS ORDERED: Insulin LISPRO 300 Unit/3 mL Inj SUBQ SCH (17:00)
== END 2016-09-02 14:35 | disposition home or self-care (01) ==
LOC: SED 08:25 → MOC 13:06
PROVIDERS: ADMIT Neuromusculoskeletal Medicine & OMM; ATTEND Neuromusculoskeletal Medicine & OMM
DX: R07.9 Chest pain, unspecified (principal); E03.9 Hypothyroidism, unspecified; I10 Essential (primary) hypertension; E78.5 Hyperlipidemia, unspecified; E11.9 Type 2 diabetes mellitus without complications; E78.1 Pure hyperglyceridemia; G47.33 Obstructive sleep apnea (adult) (pediatric); E66.9 Obesity, unspecified; K85.90 Acute pancreatitis without necrosis or infection, unspecified; Z79.84 Long term (current) use of oral hypoglycemic drugs; Z79.4 Long term (current) use of insulin; Z88.0 Allergy status to penicillin; Z68.33 Body mass index [BMI] 33.0-33.9, adult
CPT/HCPCS: 36415; 71010; 71275; 78452; 80053; 80061; 81000; 82948; 83036; 83690; 83735; 84132; 84439; 84443; 84478; 84484; 85025; 85027; 85379; 93005; 93017; 96374; 96375; 99285; A9502; G0378; J1644; J1815; J2785; J3480; J7030; J7060; Q9967